=== PATIENT | male | born 1940 ===

== ENCOUNTER 2023-01-12 11:15 | Inpatient (IN) | payer OTHER ==
[~2023-01-12] VITALS: Ht 165.1 cm; Wt 49.9 kg
[2023-01-13] MEDS ORDERED: TENORMIN50 M1 PO (15:55)
[2023-01-13] MEDS ORDERED: METFORMIN HCL500 M3 PO (15:55)
[2023-01-13] MEDS ORDERED: ZESTRIL20 MG PO (15:56)
[2023-01-13] MEDS ORDERED: ATORVASTATIN CA40 MG PO (15:56)
[2023-01-13] MEDS ORDERED: FERROCITE324 MG PO (15:56)
[2023-01-18] MEDS ORDERED: METFORMIN HCL500 M4 (08:05)
[2023-01-18] MEDS ORDERED: FOLIC ACID1 MG (08:05)
[2023-01-22] MEDS ORDERED: PERCOCET 5-3251 EACH PO (12:35)
[2023-01-22] MEDS ORDERED: HYOSCYAMINE0.125 M1 SL (12:35)
== END 2023-01-22 14:07 | disposition home or self-care (01) | DRG 330 ==
LOC: O/R 01-18 04:55 → SURH 01-18 09:17 → SURG 01-18 11:45 → SURH 01-22 14:07
PROVIDERS: ADMIT Surgery; ATTEND Surgery
PROC: 0D1M4Z4 Bypass Descending Colon to Cutaneous, Percutaneous Endoscopic Approach (ICD-10-PCS; principal; 2023-01-18 14:00)
DX: C20 Malignant neoplasm of rectum (principal); K62.5 Hemorrhage of anus and rectum; R59.0 Localized enlarged lymph nodes